=== PATIENT | female | born 1995 | race Caucasian/White ===

== ENCOUNTER → 2019-03-03 | Outpatient (REF) | payer OTHER | LOC: M SFHCLERA 18:43 | PROVIDERS: ATTEND Physician Assistant | DX: N30.01 Acute cystitis with hematuria (principal) ==

== ENCOUNTER → 2020-04-19 | Outpatient (CLI) | payer OTHER ==
[2020-04-19 14:07] LABS: BASO # 0.1 10^3/uL (0.0-0.2); BASO % 0.9 % (0.0-1.0); EOS # 0.1 10^3/uL (0.0-0.5); EOS % 1.1 % (0.0-3.0); HEMATOCRIT 41.8 % (36.0-47.0); HEMOGLOBIN 13.4 g/dl (12.0-15.5); LYMPH # 2.5 10^3/uL (1.5-5.0); MEAN CORPUSCULAR HEMOGLOBIN 28.8 pg (27.0-33.0); MEAN CORPUSCULAR HGB CONC 32.1 g/dl (32.0-36.5); MEAN CORPUSCULAR VOLUME 89.7 fl (80.0-96.0); MONO # 0.4 10^3/uL (0.0-0.8); MONO % 5.7 % (0.0-5.0); NEUTROPHILS # 3.7 10^3/uL (1.5-8.5); NEUTROPHILS % 55.1 % (36.0-66.0); PLATELET COUNT, AUTOMATED 213 10^3/uL (150-450); RED BLOOD COUNT 4.66 10^6/uL (4.00-5.40); WHITE BLOOD COUNT 6.6 10^3/uL (4.0-10.0)
[2020-04-19 14:27] LABS: HEMOGLOBIN A1c 4.9 %
[2020-04-19 14:32] LABS: FOLLICLE STIMULATING HORMONE 7.3 mIU/mL; FREE T4 1.05 NG/DL (0.76-1.46); LUTEINIZING HORMONE 9.3 mIU/mL; PROLACTIN 7.9 NG/ML; THYROID STIMULATING HORMONE 2.04 uIU/ML (0.358-3.740); TOTAL 25(OH) VITAMIN D 20.1 NG/ML (30.0-100.0)
[2020-04-20 18:07] LABS: TESTOSTERONE FREE (DIRECT) 3.6 pg/mL (0.0-4.2)
== END ==
LOC: M PLALAB 10:34
PROVIDERS: ATTEND Physician Assistant
DX: O92.6 Galactorrhea (principal); Z13.220 Encounter for screening for lipoid disorders; Z13.29 Encounter for screening for other suspected endocrine disorder